=== PATIENT | male | born 1965 | race Caucasian/White ===

== ENCOUNTER 2022-10-23 10:04 | Observation (INO) | payer OTHER ==
[~2022-10-23] VITALS: Ht 180.3 cm; Wt 57.0 kg
[~2022-10-23 10:04] MED LIST: CYCL10; IBUP800
[2022-10-23 11:27] LABS: BASOPHILS ABSOLUTE AUTO 0.05 K/mm3 (0.00-0.23); BASOPHILS PERCENT AUTO 1 % (0-2); EOSINOPHILS ABSOLUTE AUTO 0.08 K/mm3 (0.00-0.68); EOSINOPHILS PERCENT AUTO 1 % (0-6); Hematocrit 46.8 % (37.0-53.0); IMMATURE GRAN ABSOLUTE AUTO 0.03 K/mm3 (0.00-0.10); IMMATURE GRAN PERCENT AUTO 0 % (0-1); LYMPHOCYTES ABSOLUTE AUTO 2.92 K/mm3 (0.84-5.20); LYMPHOCYTES PERCENT AUTO 27 % (21-46); MONOCYTES ABSOLUTE AUTO 0.73 K/mm3 (0.16-1.47); MONOCYTES PERCENT AUTO 7 % (4-13); Mean Corpuscular HGB 30.2 pg (26.0-34.0); Mean Corpuscular HGB Conc 34.2 g/dL (31.5-36.5); Mean Corpuscular Volume 88 fL (80-100); Mean Platelet Volume 10.5 fL (9.1-12.4); NEUTROPHILS ABSOLUTE AUTO 7.04 K/mm3 (1.96-9.15); NEUTROPHILS PERCENT AUTO 65 % (41-73); Platelet Count 327 K/mm3 (150-400); RDW Coefficient Variation 14.1 % (11.7-14.2); RDW Standard Deviation 45.3 fL (35.1-46.3); White Blood Cell Count 10.85 K/mm3 (4.00-11.30)
[2022-10-23 11:58] LABS: Albumin, Blood 3.9 g/dL (3.4-5.0); Albumin/Globulin Ratio 1.2 (0.8-1.8); Bilirubin, Total 0.5 mg/dL (0.1-1.0); Bun/Creatinine Ratio 16.2 (12.0-20.0); Calcium, Blood 9.2 mg/dL (8.5-10.1); Creatinine, Blood 1.05 mg/dL (0.60-1.20); Globulin, Blood 3.3 g/dL (2.2-4.0); Potassium, Blood 3.9 mmol/L (3.5-5.5); Total Protein, Blood 7.2 g/dL (6.4-8.2)
[2022-10-23] MEDS ORDERED: Ventolin/Prove6.7 GM INH (13:58)
[2022-10-23] MEDS ORDERED: CYCL10 PO (13:58)
[2022-10-23] MEDS ORDERED: FLUT.05NI (13:58)
[2022-10-23 16:09] LABS: International Normalized Ratio 0.96; Prothrombin Time Results 10.1 Sec (9.7-11.5)
== END 2022-10-23 16:30 | disposition left against medical advice (07) ==
LOC: ER 10:04 → ERHOLD 15:42
PROVIDERS: Emergency Medicine; Student in an Organized Health Care Education/Training Program; ADMIT Internal Medicine
DX: I21.4 Non-ST elevation (NSTEMI) myocardial infarction (principal); J44.9 Chronic obstructive pulmonary disease, unspecified; F17.210 Nicotine dependence, cigarettes, uncomplicated; Z79.899 Other long term (current) drug therapy; Z53.29 Procedure and treatment not carried out because of patient's decision for other reasons
CPT/HCPCS: 36415; 71045; 80053; 83690; 84484; 85025; 85520; 85610; 85730; 93005; 93010; A9270; J1644

== ENCOUNTER 2023-04-29 07:22 | Day surgery (SDC) | payer MEDICARE, OTHER ==
[2023-04-29] VITALS (8 sets, daily range): BP systolic 90–126; BP diastolic 63–85
[~2023-04-29] VITALS: Ht 180.3 cm; Wt 61.2 kg
[~2023-04-29 07:22] MED LIST changes: +ASPI325 PO; +CYCL10 PO; +FLUT.05NI; +METOPROLOL SUCC25 MG PO; +Simvastatin40 MG PO; +Ventolin/Prove6.7 GM INH
[2023-04-29 08:10] LABS: Hemoglobin 16.9 g/dL (13.5-17.5); Mean Corpuscular HGB Conc 33.8 g/dL (31.5-36.5); Mean Corpuscular Volume 89 fL (80-100); Mean Platelet Volume 11.8 fL (9.1-12.4); Platelet Count 305 K/mm3 (150-400); RDW Coefficient Variation 14.9 % (11.7-14.2); RDW Standard Deviation 48.7 fL (35.1-46.3); Red Blood Cell Count 5.63 M/mm3 (4.30-5.90); White Blood Cell Count 9.29 K/mm3 (4.00-11.30)
[2023-04-29 08:22] LABS: International Normalized Ratio 0.96; Prothrombin Time Results 10.1 Sec (9.7-11.5)
[2023-04-29 08:27] LABS: Albumin, Blood 4.4 g/dL (3.4-5.0); Albumin/Globulin Ratio 1.4 (0.8-1.8); Bilirubin, Total 0.5 mg/dL (0.1-1.0); Bun/Creatinine Ratio 12.7 (12.0-20.0); Calcium, Blood 9.3 mg/dL (8.5-10.1); Creatinine, Blood 1.02 mg/dL (0.60-1.20); Globulin, Blood 3.1 g/dL (2.2-4.0); Total Protein, Blood 7.5 g/dL (6.4-8.2)
--- NOTE | 2023-04-29 09:15 | NUR ---
PATIENT ARRIVED TO RECOVERY ROOM CONVERSING APPROPRIATELY IN BED. R RADIAL TR BAND FULLY INFLATED. SITE C/D/I SOFT/NONTENDER, NO EVIDENCE OF HEMATOMA, GOOD PLEUTH WAVE. VSS ON ROOM AIR.
--- NOTE | 2023-04-29 09:45 | NUR ---
PATIENT SITTING UPRIGHT IN BED, TOLERATING PO INTAKE WELL. ECHO PERFORMED AT BEDSIDE. VSS ON ROOM AIR
--- NOTE | 2023-04-29 10:00 | NUR ---
2 CC OF AIR REMVOED FROM R RADIAL TR BAND, SITE C/D/I SOFT/NONTENDER, NO EVIDENCE OF HEMATOMA., GOOD PLEUTH WAVE. VSS ON ROOM AIR. PATIENT DENYING ANY PAIN.
--- NOTE | 2023-04-29 10:45 | NUR ---
ALL AIR REMOVED FROM R RADIAL TR BAND. SITE C/D/I SOFT/NONTENDER, NO EVIDENCE OF HEMATOMA. VSS ON ROOM AIR. PATIENT DNEYING ANY PAIN.
--- NOTE | 2023-04-29 11:15 | NUR ---
PATIENT AMBULATING AND VOIDING TO RESTROOM WITHOUT DIFFICULTY. R RADIAL SITE C/D/I SOFT/NONTENDER, NO EVIDENCE OF BLEEDING. VSS ON RA. PATIENT DENYING ANY PAIN.
--- NOTE | 2023-04-29 11:17 | NUR ---
DISCHARGE PAPERWORK AND INSTRUCTIONS REVIEWED WITH PATIENT AND SPOUSE AT BEDSIDE. ALL QUETIONS WERE ANSWERED. FOLLOW UP APPOINTMENT SCHEDULED. VSS ON ROOM AIR.
--- NOTE | 2023-04-29 11:25 | NUR ---
PATIENT DISCHARGED HOME AT THIS TIME. R RADIAL TR BAND REMOVED, CLOTH DOT APPLIED AND ARM BOARD IN PLACE. PATIENT INSTRUCTED ON RADIAL SITE CARE. PIV REMOVED WITHOUT DIFFICULTY, CATHETER INTACT. VSS ON RA. PATIENT WHEELED TO PATIENT ENTRANCE, FRIEND ABLE TO PROVIDE TRANSPORTATION HOME. ALL APTIENT BELONGINGS AND DISCHARGE PAPERWORK LEFT WITH PATIENT.
== END 2023-04-29 11:36 | disposition home or self-care (01) ==
LOC: MHTC 07:22
PROVIDERS: Internal Medicine Cardiovascular Disease
DX: I25.119 Atherosclerotic heart disease of native coronary artery with unspecified angina pectoris (principal); J44.9 Chronic obstructive pulmonary disease, unspecified; I25.2 Old myocardial infarction; Z79.82 Long term (current) use of aspirin
CPT/HCPCS: 76937; 80053; 85027; 85610; 93306; 93454; 99152; 99153; A9270; C1769; C1887; C1894; J1644; J2250; J3010; J7030; J7050; Q9967

== ENCOUNTER → 2023-09-05 | Outpatient (CLI) | payer MEDICARE, OTHER ==
[2023-09-05 15:33] LABS: Stool Occult Bld Immuno 1 Positive (NEGATIVE)
== END | disposition home or self-care (01) ==
LOC: LAB SHORT 12:12 → LAB 12:12
PROVIDERS: Family Medicine
DX: R63.4 Abnormal weight loss (principal)
CPT/HCPCS: 82274

== ENCOUNTER 2024-01-05 08:05 | Day surgery (SDC) | payer MEDICARE, OTHER ==
[~2024-01-05] VITALS: Ht 177 cm; Wt 55.6 kg
[~2024-01-05 08:05] MED LIST changes: +Lactated Ringer's 1,000 ML IV SCH; +NITR.4SL SL; +STIOLTO RESPIMAT4 G1 IH; +ZOCOR20 MG PO
[2024-01-05 09:38] VITALS: BP 106/50
[2024-01-05] MEDS ORDERED: Flonase 0.05% N16 GM (09:43)
--- NOTE | 2024-01-05 09:44 | NUR ---
History, Chart, Medications and Allergies reviewed before start of procedure. Patient up to Ambulate independently. Gait steady. Pre-Op teaching done. Pt verbalizes understanding. Patient confirms NPO status and agrees with scheduled surgery. Lungs clear T/O to Auscultation. Patient States Post-Procedure ride home has been arranged.
[2024-01-05] MEDS ORDERED: propofoL 40 ML IV ONE (10:05)
--- NOTE | 2024-01-05 10:12 | NUR ---
01/05/24 [facility] Rose HISTORY, CHART, MEDICATIONS AND ALLERGIES REVIEWED BEFORE START OF PROCEDURE. PATIENT CONFIRMS NPO STATUS AND AGREES WITH SCHEDULED PROCEDURE. 3-LEAD EKG REVIEWED WITH PHYSICIAN PRIOR TO START OF PROCEDURE. MONITOR INTACT WITH CONTINUOUS PULSE OXIMETRY,CAPNOGRAPHY, 3-LEAD EKG, INTERMITTENT BP. SUPPLEMENTAL O2 TO BE TITRATED THROUGHOUT PROCEDURE TO MAINTAIN O2 SATURATION ABOVE 90%. PATIENT DETERMINED TO BE ASA APPROPRIATE FOR PROPOFOL SEDATION PRIOR TO START OF PROCEDURE BY
[2024-01-05] MEDS ORDERED: Midazolam HCl 1MG / ML 2ML Vial ONE (10:16)
[2024-01-05 10:57] VITALS: BP 96/62
[2024-01-05 11:05] VITALS: BP 96/78
[2024-01-05 11:15] VITALS: BP 112/81
--- NOTE | 2024-01-05 11:26 | NUR ---
Patient up to Ambulate independently. Gait steady. Discharge instructions reviewed with patient. Patient verbalizes understanding. Copy given to patient to take home. Patient States Post-Procedure ride home has been arranged. Discharged via wheelchair to private car for ride home. PT DENIES PAIN,CP,SOB,N/V. PT REPORTS READY TO GO HOME. TOLERATING PO.
== END 2024-01-05 11:26 | disposition home or self-care (01) ==
LOC: ORSCMMR 08:05 → ORD 09:30 → ORSCMMR 09:30
PROVIDERS: Internal Medicine Gastroenterology
PROC: 0DBL8ZX Excision of Transverse Colon, Via Natural or Artificial Opening Endoscopic, Diagnostic (ICD-10-PCS; principal; 2024-01-05 09:30)
PROC: 0DBN8ZX Excision of Sigmoid Colon, Via Natural or Artificial Opening Endoscopic, Diagnostic (ICD-10-PCS; principal; 2024-01-05 09:30)
PROC: 3E0H8KZ Introduction of Other Diagnostic Substance into Lower GI, Via Natural or Artificial Opening Endoscopic (ICD-10-PCS; principal; 2024-01-05 09:30)
DX: R19.5 Other fecal abnormalities (principal); D12.5 Benign neoplasm of sigmoid colon; D12.3 Benign neoplasm of transverse colon; K57.30 Diverticulosis of large intestine without perforation or abscess without bleeding; I25.2 Old myocardial infarction; J44.9 Chronic obstructive pulmonary disease, unspecified; F17.210 Nicotine dependence, cigarettes, uncomplicated; Z85.828 Personal history of other malignant neoplasm of skin; Z79.899 Other long term (current) drug therapy; Z79.82 Long term (current) use of aspirin
CPT/HCPCS: 88305; J2250; J2704; J7120

== ENCOUNTER → 2025-07-30 | Outpatient (CLI) | payer MEDICARE, OTHER ==
[~2025-07-30] MED LIST changes: +Flonase 0.05% N16 GM; -Lactated Ringer's 1,000 ML IV SCH
== END ==
LOC: LAB 15:12 → LAB SHORT 15:12
DX: M54.50 Low back pain, unspecified (principal); R30.0 Dysuria
CPT/HCPCS: 87086